=== PATIENT | female | born 1990 | race Caucasian/White ===

== ENCOUNTER 2017-03-21 17:03 | Emergency (ER) | payer MEDICAID ==
[~2017-03-21] VITALS: Ht 165.1 cm; Wt 63.5 kg
[2017-03-21 17:38] VITALS: BP 115/75
[2017-03-21 19:01] LABS: APPEARANCE,URINE Clear (CLEAR); BILIRUBIN,URINE Negative (NEGATIVE); BLOOD, URINE Moderate Ery/uL (NEGATIVE); COLOR,URINE Yellow (YELLOW); KETONES,URINE Negative (NEGATIVE); LEUKOCYTE ESTERASE ,URINE Small (NEGATIVE); NITRITE, URINE Negative (NEGATIVE); PROTEIN,URINE Negative (NEGATIVE); UGLUCOSE Negative (NEGATIVE); UROBILINOGEN,URINE 0.2 EU/dL (0.2)
[2017-03-21 19:27] LABS: PREGNANCY TEST URINE QUAL NEGATIVE (NEGATIVE)
[2017-03-21 19:28] LABS: BACTERIA,URINE 2+ /HPF (None Seen); SQUAMOUS EPITHELIAL CELL,UR Few /HPF (None Seen)
== END 2017-03-21 19:39 | disposition home or self-care (01) ==
LOC: ER 17:08 → EDSEX 17:08 → ER 19:39
DX: N39.0 Urinary tract infection, site not specified (principal)
CPT/HCPCS: 81000-TC; 84703-TC; 87086-TC; A4606; Z7610